=== PATIENT | female | born 1945 | race Caucasian/White ===

== ENCOUNTER 2016-05-08 20:04 | Inpatient (IN) | payer MEDICARE ==
[~2016-05-08] VITALS: Ht 157.5 cm; Wt 90.7 kg
[~2016-05-08 20:04] MED LIST: AMIO200T PO; AMPI500C11 PO; ASPI325T32 PO; CARV3.122 PO; CHOL200025 PO; DOXY100T2 PO; HYDR-4003 PO; HYG25 PO; INSU100V28 SUBQ; MELA3TAB11 PO; NITR0.4T SL; NPH,100V11 SUBQ; PRAV10TA2 PO; SPIR25TA3 PO; WARF3TAB7 PO; [UNRECOGNIZED DRUG - OTHER] PO
[2016-05-08 20:06] VITALS: BP 166/69; PULSE 64; RESP 16; O2SAT 97
--- NOTE | 2016-05-08 20:13 | ED.REPORT ---
HPI-Chest Pain 40 and Over Date of Service May 08, 2016 ED Provider: Naga Albright MD The patient is a 71 year old female with history of coronary artery disease s/p CABG and stenting, atrial fibrillation, diabetes mellitus, hypertension, hyperlipidemia, sick sinus syndrome s/p pacemaker, and stroke, who presents to the emergency department by EMS complaining of chest pain. The chest pain began this morning. She took nitroglycerin x3 throughout the day and when the pain returned again this evening she decided to call EMS. She describes the pain as a "pressure" and "heaviness." The pain is located to her substernal region. The episodes of pain seem to be brought on with exertion. Her pain is similar to when she had stents placed. EMS administered an additional dose of nitroglycerin en route. The pain is resolved now. She took 324 mg aspirin along with the rest of her regularly prescribed medication this morning. She denies fever, cough, runny nose. She reports that since her later last year she has been "cold and chilled." Nursing Notes Stated Complaint: CHEST PAIN Chief Complaint: Chest Pain Nursing Notes Reviewed: Yes Allergies: Coded Allergies: sotalol (Verified Allergy, Mild, Hives, 09/01/15) Sulfa (Sulfonamide Antibiotics) (Verified Allergy, Unknown, 09/01/15) furosemide (Verified Allergy, Unknown, 09/01/15) lactose (Verified Allergy, Unknown, 09/01/15) TAPE (Verified Adverse Reaction, Intermediate, 09/01/15) Scheduled ([BioDoph 7]) 1 CAPSULE PO BID Amiodarone (Amiodarone) 200 Mg Tablet 400 MG PO BID 2 pills twice per day for 5 more days starting 09/05/15, then 2 pills once per day for 7 days, then one pill per day. Ampicillin Trihydrate (Ampicillin Trihydrate) 500 Mg Capsule 500 MG PO Q6H Aspirin (Aspirin) 325 Mg Tablet 325 MG PO DAILY Carvedilol (Carvedilol) 3.125 Mg Tablet 3.125 MG PO BID Chlorthalidone (Chlorthalidone) 25 Mg Tablet 25 MG PO DAILY Cholecalciferol (Vitamin D3) (Vitamin D3) 2,000 Unit Tablet 2,000 UNIT PO DAILY Doxycycline Hyclate (Doxycycline Hyclate) 100 Mg Tablet 100 MG PO DAILY Insulin Regular, Human (HUMulin-R U100 Insulin Vial) 100 Unit/1 Ml Vial 1 UNIT SUBQ TIDAC Melatonin (Melatonin) 3 Mg Tablet.er 3 MG PO HS NPH, Human Insulin Isophane (HUMulin-N U100 Insulin Vial) 100 Unit/1 Ml Ml 25 UNIT SUBQ BIDAC Pravastatin (Pravastatin) 10 Mg Tablet 10 MG PO HS Spironolactone (Spironolactone) 25 Mg Tablet 25 MG PO DAILY Warfarin Sodium (Warfarin Sodium) 3 Mg Tablet 6 MG PO DAILY take every other day Scheduled PRN Hydrocodone-Acetaminophen 5-325 mg (Hydrocodone-Acetaminophen 5-325 mg) 1 Each Tablet 1 TABLET PO Q4H PRN PRN For Pain Nitroglycerin SL (Nitrostat) 0.4 Mg Tablet 0.4 MG SL Q5MIN PRN PRN For Chest Pain General Time Seen by MD: 20:05 Chief Complaint Chest pain Hx Obtained From: Patient, EMS Arrived By: Ambulance Sudden in Onset?: Yes Onset Occurred: 9 - 12 hours ago Symptom Duration: Intermittent Location: : Substernal Quality: Heaviness, Pressure Severity: Current: No pain currently Severity: Maximum: Severe Recent Healthcare: No recent hospitalization Similar Sx Previous: No Past Medical History Past Medical History Notes: Act English Tutor: Dr. Harris Full code Past Medical History Legally blind TIA Stage 3 kidney disease Paroxysmal Atrial fibrillation Sick sinus syndrome Reports: Coronary artery disease, Diabetes mellitus, Hyperlipidemia, Hypertension Past Surgical History CABG in 2012 Cardiac stents Reports: Appendectomy, Cholecystectomy, Hysterectomy Reports: Pacemaker insertion Family History diabetes, breast cancer, colon cancer, CVA Smoking History Former Smoker Social History Alcohol Use: Denies alcohol use Drug Use: Denies drug use Other Social History: Good social support, , Local resident Ambulatory Status Independent Review of Systems Constitutional: Reports: Chills (over the last several months), Denies: Fever Respiratory: Reports: Shortness of breath, Denies: Non-productive cough Cardiovascular: Reports: Chest pain Complete sys rev & neg: except as marked. Ears / Nose / Throat: Denies: Nasal congestion Allergy / Immune: Denies: Rhinorrhea Physical Exam Initial Vital Signs Vital Signs (First) Date Time Temp Pulse Resp B/P Pulse Ox O2 Delivery O2 Flow Rate FiO2 05/08/16 20:06 36.9 64 16 166/69 97 Room Air Initial VS: Reviewed Head / Eyes: Atraumatic, Normocephalic, PERRL ENT: Mucous membranes moist, Conjunctiva normal, No scleral icterus Neck: Supple, Non-tender, Full range of motion Lymphatic: No lymphadenopathy Extremities: Vascular intact, Neuro intact Skin: Warm, Dry, No cyanosis Psychiatric: Mood/affect normal, Behavior normal, Normal thought content General/Constitutional: Awake, Alert, No acute distress, Cooperative Respiratory / Chest: Atraumatic, Breath sounds NL, Breath sounds = bilat, No respiratory distress, No rales, No rhonchi, No wheezing, No stridor, No chest tenderness Well healed scar to her left chest. Cardiovascular: Heart rate NL, Regular rhythm, Heart sounds NL, No murmurs, Peripheral circulation NL, Pulses = bilaterally, No gross BP differential Abdomen: Atraumatic, Soft, Non-tender, McBurney's non-tender, No guarding, No rebound, BS normoactive, No distention, No hernia, No palpable mass Lower Extremity / Pelvis / MS: Neurologic intact, Vascular intact Trace pitting edema of her ankles bilaterally but otherwise no calf swelling or tenderness. Neurologic: Oriented X3, Speech NL, No motor deficits, No sensory deficits No lateralizing neurologic deficits. Interpretation & Diagnostics Lab Results Interpretation Result Diagram: 05/08/16201205/08/16 2013 Test 05/08/16 20:13 White Blood Count 8.4th/mm3 (3.8-10.1) Red Blood Count 4.09mil/mm3 (3.90-5.20) Hemoglobin 12.0g/dL (12.0-15.6) Hematocrit 36.3% (35.0-46.0) Mean Corpuscular Volume 88.8fL (81-100) Mean Corpuscular Hemoglobin 29.3pg (27.0-35.0) Mean Corpuscular Hemoglobin Concent 33.1% (32.0-37.0) Red Cell Distribution Width 13.2% (12.3-15.4) Platelet Count 254bil/L (150-400) Neutrophils (%) (Auto) 55.7% (40-74) Lymphocytes (%) (Auto) 31.3% (14-46) Monocytes (%) (Auto) 8.3% (4-12) Eosinophils (%) (Auto) 3.8% (0-5) Basophils (%) (Auto) 0.7% (0-3) Sodium Level 139mEq/L (134-144) Potassium Level 3.8mEq/L (3.5-5.2) Chloride Level 101mEq/L (97-108) Carbon Dioxide Level 24mmol/L (18-29) Blood Urea Nitrogen 37mg/dL (8-27) Creatinine 2.21mg/dL (0.57-1.00) Estimat Glomerular Filtration Rate 31mL/min (>59) Glucose Level 250mg/dL (60-99) Calcium Level 9.8mg/dL (8.5-10.1) Magnesium Level 2.2mg/dL (1.6-2.6) Total Bilirubin 0.2mg/dL (0.0-1.2) Aspartate Amino Transf (AST/SGOT) 20U/L (0-50) Alanine Aminotransferase (ALT/SGPT) 19U/L (0-32) Alkaline Phosphatase 54U/L (25-165) Total Protein 6.5g/dL (6.4-8.4) Albumin 4.0g/dL (3.4-5.0) ECG Interpretation ECG Interpretation: Atrial paced rhythm at 60 bpm Compared to EKG taken on 11/15/2015 the patient remains in an atrially paced rhythm and there are no significant changes. Time: 20:00 Interpreted by: ED physician X-Ray Chest Interpretation Chest Xray Interpretation: IMPRESSION: No acute cardiopulmonary findings. Dictated by: Elli Main M.D. on 05/08/2016 at 20:44 Interpretation / Wet Read by: Interpret - Radiologist Re-Eval/Medical Decision Med Decision/Clinical Course The patient is a 71 year old female with history of coronary artery disease s/p CABG and stenting, atrial fibrillation, diabetes mellitus, hypertension, hyperlipidemia, sick sinus syndrome s/p pacemaker, and stroke, who presents to the emergency department by EMS complaining of chest pain. ASA and NTG prior to arrival with improvement in her chest pain. Chest pain is exertional in nature and similar to previous chest pain she experienced prior to requiring coronary intervention. EKG: atrially paced rhythm as described above CXR: Obtained, reviewed and interpreted by myself shows no evidence of acute infiltrates, effusions or pneumothorax. Cardiac and mediastinal silhouette normal. No bony or soft tissue abnormalities. LABS: CBC unremarkable, CMP: BUN 37 at baseline, creatinine of 2.21 which is slightly elevated from baseline of 1.7-1.8, glucose 250, no significant electrolyte abnormality, troponin 0.013 increased from prior negative troponin on 11/09/2015. Upon arrival here in the emergency department the patient had mild chest pain and was quite hypertensive with a blood pressure in the 200s over the 100s. This markedly elevated blood pressure in the setting of acute kidney injury and positive troponin is concerning for hypertensive emergency. Patient remained with markedly elevated blood pressure on repeat testing and therefore I opted to initiate nicardipine infusion with good control patient's blood pressure. With this treatment she had resolution of her chest pain. While the patient's troponin is positive it is only mildly so in the setting of her acute kidney injury is difficult to interpret. She will require serial troponin testing however this moment I have opted not to initiate heparinization. She is neurologically intact without any headache or blurry vision and do not feel that neuro imaging is indicated. Patient was discussed with admitting physician and transferred to the ICU in stable condition on nicardipine drip. Source of Hx: Old records, EMS Time of Eval: 21:36 Re-Evaluation/Progress Note: Discussed results, diagnosis, and plan for admission. She is agreeable with plan. All questions were addressed. Consultation : Referral / Consult Name: Lavonne Andujar DO Consulted With: Hospitalist Requested Call at: 21:41 Call Returned at: 21:48 Ssas Developer: Will see patient, Agrees with eval, Agrees with plan, Accepts admit Counseled Regarding: Diagnosis, Lab results, Need for admission Discharge & Departure Primary Impression: Chest pain Chest pain type: unspecified Qualified Code: R07.9 - Chest pain, unspecified Additional Impressions: Hypertensive emergency History of coronary artery disease History of heart artery stent Acute kidney injury Elevated troponin I level Disposition: ADMITTED TO HOSPITAL Discharge Condition All VS Reviewed: Yes Condition: Stable Referrals: Roseann Newman PA-C (PCP) Leonidas Harris MD Crit Care Except Billable Proc Time Spent: 105-134 minutes Services Performed: Patient management by me, Time spent at bedside, Reviewing test results, Reviewing imaging, Discussing patient care, Documentation in record Scribe Attestation Portions of this note were transcribed by Bonnie Berger. Dr. Natalee Jorge personally performed the history, physical exam and medical decision-making; I reviewed and confirmed the accuracy of the information in the transcribed note. Signed by: Stefanie Flores, 05/08/2016 at 2150. copies to: Leonidas Harris MD; Roseann Newman PA-C, Beck O MD May 08, 2016 20:13 Bonnie Berger May 08, 2016 20:17
[2016-05-08 20:16] LABS: BASOPHILS % (AUTO) 0.7 % (0-3); EOSINOPHILS % (AUTO) 3.8 % (0-5); MONOCYTES % (AUTO) 8.3 % (4-12); Mean Corpuscular Hemoglobin 29.3 pg (27.0-35.0); Mean Corpuscular Volume 88.8 fL (81-100); NEUTROPHILS % (AUTO) 55.7 % (40-74); Platelet Count 254 bil/L (150-400)
[2016-05-08 20:42] LABS: TROPONIN T 0.013 ug/L (0.0-0.011)
--- NOTE | 2016-05-08 20:46 | DRSVH ---
PROCEDURE: X-RAY CHEST ONE VIEW, PORTABLE ([id number]) INDICATIONS: chest pain TECHNIQUE: One view of the chest was acquired. COMPARISON: [facility], CR, XR CHEST 1VW (PORTABLE), 11/15/2015, 12:51. FINDINGS: Surgical changes and devices: Dual-lead cardiac pacer is unchanged. Lungs and pleura: No pleural effusions or pneumothorax. Lungs are clear. Mediastinum: Mediastinal contours appear normal. Heart size is normal. Bones and chest wall: No suspicious bony lesions. Overlying soft tissues appear unremarkable. IMPRESSION: No acute cardiopulmonary findings. Dictated by: Elli Main M.D. on 05/08/2016 at 20:44 Approved by: Elli Main M.D. on 05/08/2016 at 20:44
[2016-05-08 20:53] LABS: Magnesium 2.2 mg/dL (1.6-2.6)
[2016-05-08] MEDS ORDERED: Alum-Mag Hydrox-Simeth 30 mL Suspension PO PRN (21:45)
[2016-05-08] MEDS ORDERED: Ondansetron 2 mg/mL 2 mL Inj IVPUSH PRN (21:45)
[2016-05-08] MEDS: NiCARdipine Inj 25 MG in Dextrose 5% 240 ML IV SCH (22:32)
[2016-05-08 23:28] VITALS: BP 164/59; PULSE 60; RESP 16; O2SAT 98
[2016-05-08 23:38] VITALS: BP 182/57; PULSE 60; RESP 18; O2SAT 98
[2016-05-08] MEDS ORDERED: Senna-Docusate 8.6-50 mg Tablet PO PRN (23:50)
[2016-05-08] MEDS ORDERED: Atropine 1 mg/10 mL (Code) Syringe IVPUSH PRN (23:50)
[2016-05-08] MEDS ORDERED: Polyethylene Glycol (PEG) 17 Gm Powder PO PRN (23:50)
[2016-05-09] VITALS (12 sets, daily range): BP systolic 140–207; BP diastolic 35–93; PULSE 60–61; RESP 14–20; O2SAT 93–97
[2016-05-09] MEDS ORDERED: LOSA50TA37 PO (00:04)
[2016-05-09] MEDS ORDERED: NPH,100V11 SUBQ (00:04)
[2016-05-09] MEDS ORDERED: BUME1TAB4 PO ×2 (00:04→15:43)
[2016-05-09] MEDS ORDERED: FLUO10CA20 PO (00:04)
[2016-05-09] MEDS ORDERED: ASCO100089 PO (00:04)
[2016-05-09] MEDS ORDERED: FAMO20TA4 PO (00:04)
[2016-05-09] MEDS ORDERED: CARV25TA2 PO ×2 (00:04→15:43)
[2016-05-09] MEDS ORDERED: AMIO200T PO ×2 (00:04→15:43)
[2016-05-09] MEDS ORDERED: HYDR-3940 PO ×2 (00:04→15:43)
[2016-05-09] MEDS ORDERED: ISOS20TA7 PO ×2 (00:04→15:43)
[2016-05-09] MEDS ORDERED: HYG25 PO (00:13)
[2016-05-09] MEDS ORDERED: LOSA25TA21 PO (00:13)
--- NOTE | 2016-05-09 00:30 | NUR ---
Admit to CCU Pt admitted to CCU room 2019 from ER in [facility]. Pt A&O x 3 and able to ambulate from [facility] to scale to bed without problem. Tele shows A Paced rhythm in 60s. High BP 170s/50s with goal systolic rate of 160s-180s. On Nicardipine gtt. Denies CP, SOB, n/v/d or abdominal pain. Did c/o 5/10 [place], but reports it "feels like a normal BURLESON" vs when she had TIA/stroke. Pt oriented to room, floor, and call light. Care ongoing
--- NOTE | 2016-05-09 00:43 | PCM.HPMED ---
Subjective Date of Service May 09, 2016 Primary Provider: Admitting Physician: Lavonne Andujar DO Primary Care Physician: Roseann Newman PA-C Attending Physician: Lavonne Andujar DO Admit Status: From the Emergency Department, Critical Care, [facility] Telemetry Chief Complaint: Chest pain History of Present Illness: Ms. Trixie Graham is a pleasant 71 year old woman with a history of CAD s/p stenting x2, paroxysmal atrial fibrillation, sick sinus syndrome s/p dual- chamber pacer placement, insulin using diabetes mellitus, multiple ischemic CVA , two hemorrhagic stroke, and hyperlipidemia, who presented to the ED via EMS for substernal chest pain onset this morning. Patient reports to have intermittent angina that improved after the pacemaker placement. She has had occasional angina episodes that resolve spontaneously. Today was different as the chest pain persisted until she got to the ED. Patient has chest pain both at rest and with activities, but seems to worsen with exertion. She states, "even putting on clothes feels like running a marathon." She took nitroglycerin x3 throughout the day with some relief. When the pain returned again this evening, she decided to call EMS. She describes the pain as a "pressure" and "heaviness." The pain is located to her substernal region with no radiation. The episodes of pain seem to be brought on with exertion. Her pain is similar to when she had stents placed. EMS administered an additional dose of nitroglycerin en route. The pain is resolved now. Patient states that she had 2 stents, one was placed 7 years ago, and the other was placed 2 years ago. Never has CABG. Associated symptoms include exertional dyspnea. Patient denies fever , diaphoresis, cough, runny nose, headache, or orthopnea. Patient had 2 hemorrhagic stroke, with the most recent one in 10/2015 and her warfarin has been held since. She does not have any neurological deficit and can ambulate independently as baseline. She reports that the Afib has been well- controlled with the pacemaker. Rate controlled with Carvedilol and Amiodarone. In the ED, T36.6, P158, R20, BP242/84, 94% room air; LABS: CBC unremarkable, CMP : BUN 37 at baseline, creatinine of 2.21 which is slightly elevated from baseline of 1.7-1.8, glucose 250, no significant electrolyte abnormality, troponin 0.013 increased from prior negative troponin on 11/09/2015. EKG revealed Atrial paced rhythm at 60bpm with no significant changes compared to the last EKG on 11/15/2015. Nicardipime drip initiated. Patient is admitted to the CCU for angina and hypertensive emergency. Review of Systems: A comprehensive review of systems was conducted with the patient and found to be negative except as above in the History of Present Illness. Allergies Coded Allergies: sotalol (Verified Allergy, Mild, Hives, 09/01/15) Sulfa (Sulfonamide Antibiotics) (Verified Allergy, Unknown, 09/01/15) furosemide (Verified Allergy, Unknown, 09/01/15) lactose (Verified Allergy, Unknown, 09/01/15) TAPE (Verified Adverse Reaction, Intermediate, 09/01/15) Home Medications Scheduled Amiodarone (Amiodarone) 200 Mg Tablet PO daily Ascorbic acid 1000mg PO daily Aspirin (Aspirin) 325 Mg Tablet 325 MG PO DAILY Bumetanide 1mg PO daily Carvedilol (Carvedilol) 25 MG PO BID Chlorthalidone (Chlorthalidone) 25 Mg Tablet 12.5 MG PO DAILY Cholecalciferol (Vitamin D3) (Vitamin D3) 2,000 Unit Tablet 2,000 UNIT PO DAILY Famotidine 20mg BID Fluoxetine 10mg daily Hydralazine 50mg PO TID Isosorbide 40mg PO BID Losartan 50mg PO BID Melatonin (Melatonin) 3 Mg Tablet.er 3 MG PO HS NPH, Human Insulin Isophane (HUMulin-N U100 Insulin Vial) 100 Unit/1 Ml Ml 25 UNIT SUBQ BIDAC Pravastatin (Pravastatin) 10 Mg Tablet 10 MG PO HS Spironolactone (Spironolactone) 25 Mg Tablet 25 MG PO DAILY Warfarin Sodium (Warfarin Sodium) 3 Mg Tablet 6 MG PO DAILY take every other day Scheduled PRN Hydrocodone-Acetaminophen 5-325 mg (Hydrocodone-Acetaminophen 5-325 mg) 1 Each Tablet 1 TABLET PO Q4H PRN PRN For Pain Nitroglycerin SL (Nitrostat) 0.4 Mg Tablet 0.4 MG SL Q5MIN PRN PRN For Chest Pain PMH Per next gen: Hypertension Chronic headaches Hyperparathyroidism Type 2 diabetes mellitus Lumbosacral radiculopathy Depression Tachy-eliza syndrome SSS (sick sinus syndrome) Hyperlipidemia Chronic atrial fibrillation Diabetes mellitus Radiculopathy of lumbar region Atrial Fibrillation CAD Late effects of cerebrovascular disease Abdominal pain Chronic abdominal pain Type II diabetes mellitus uncontrolled Benign hypertension Paroxysmal atrial fibrillation Chronic kidney disease, stage III (moderate) 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 with type 2 diabetes mellitus YANCI (obstructive sleep apnea) Radicular pain Stroke both ischemic and hemorrhagic Surgical History CAD s/p LAD stenting 2012 Surgical History Cholecystectomy CAD s/p stent LAD 2012 Temporal artery Bx 1998 Appendectomy Hysterectomy Family History Significant family history of diabetes (4th generation with DM), breast cancer, colon cancer, CVA Social History Hx Alcohol Use: No Hx Substance Use: No Hx Tobacco Use: No Smoking Status: Former Smoker (3-month history of tobacco use in college) Living Arrangement: Alone Additional Information Patient was in the hospital a year ago when she found out that her at home. The home health nurse found him on the couch. Now she lives by herself with 3 kids living around the area. She is independent at baseline. She uses the walking cane occasionally when she goes out. PCP Roseann Newman Cardiology Dr. Harris Nephrology Dr. Scott Endocrinology Dr. Moralez Exam Vital Signs Vital Sign - Last Date Time Temp Pulse Resp B/P Pulse Ox O2 Delivery O2 Flow Rate FiO2 05/08/16 23:38 37.0 60 18 182/57 98 Room Air Intake and Output 05/08/16 05/08/16 05/09/16 Cumulative From/Thru 15:00 23:00 07:00 05/08/16 20:06 - 05/08/16 23:30 Output Total 250 ml 250 ml Balance -250 ml -250 ml Output Urine Total 250 ml 250 ml # Voids 1 1 Exam General: Overweight female resting in bed; No acute distress, pleasant, cooperative; Alert and oriented to self, date, location HENT: No JVD noted; atraumatic, normocephalic; EOMI, PERRL, mucous membranes moist Chest: Upper left chest with well healed scar; no active bleeding or exudate, mildly tender to palpation, no surrounding erythema Cardiac: Regular rate and rhythm with loud S1, no murmurs appreciated Respiratory: Adequate air flow all goldstein, no wheeze or coarse sounds appreciated; no conversational dyspnea Abdomen: Soft, nontender with exception of mild suprapubic tenderness; no organomegaly appreciated Extremities: Trace pitting edema of bilateral lower extremities. No calf swelling or tenderness. 5/5 dorsiflexion bilateral; radial pulses equal. Neuro: CNII-CNXII grossly intact; speech normal. No motor/sensory deficits. Lymphatic: no cervical or supraclavicular lymphadenopathy on palpation / visualization Psych: Appears depressed. Good insight and judgment; appropriate responses to questioning Lab and Diagnostics Result Diagram: 05/08/16201205/08/162012 X-Rays, CTs and MRIs PROCEDURE: X-RAY CHEST ONE VIEW, PORTABLE IMPRESSION: No acute cardiopulmonary findings. Dictated by: Elli Main M.D. on 05/08/2016 at 20:44 Approved by: Elli Main M.D. on 05/08/2016 at 20:44 12-lead ECG Atrial paced rhythm at 60bpm. No significant changes compared to EKG taken on . Assessment & Plan Ms. Trixie Graham is a pleasant 71 year old woman with a history of paroxysmal atrial fibrillation, sick sinus syndrome s/p dual-chamber pacer placement, uncontrolled insulin using diabetes mellitus, multiple ischemic CVA, two hemorrhagic stroke, and hyperlipidemia, that presented to the ED with symptoms of chest pain. Patient admitted for evaluation and treatment of angina and hypertensive emergency. 1. Angina, acute, present on admission, active. - Likely secondary to AF with RVR - ED EKG revealed A-paced rhythm with HR at 60. - Last echo in [facility] 08/2015 showed Left ventricular wall thickness is mildly increased. The ejection fraction is estimated to be 60-65%. Consider Limited Echo in am - While the patient's troponin is positive it is only mildly so (0.013). In the setting of her acute kidney injury, it is difficult to interpret. She will require serial troponin testing - EKG prn chest pain. - Continue home dose of ASA 325mg and statin, lipid panel and hgb a1c pending - Nitro, O2 supplement, and Morphine PRN. - Will not start Heparin drip given her history of hemorrhagic CVA in 10/2015. - Consider consult Cardiology in AM - Telemetry monitoring 2. Hypertensive Emergency, acute, present on admission, active. - Markedly elevated BP in the setting of CONNIE and positive troponin. - Highest BP was 242/84. Improved on Nicardipine ggt. - Goal SBP is 180/60. - Will taper and d/c Nicardipine ggt once SBP is stable around 160 - Will continue all antihypertensive home meds when transitioning from Nicardipine drip. Patient is on multiple cardiac medications. - Continue to monitor vital signs 3. Acute on chronic kidney disease, stage III, present on admission, active. - Cr at admission 2.21 with eGFR 31; baseline 1.7-1.8 according to previous values - Employee Health Rn: [facility]. Scott [facility] - Avoidance of nephrotoxic medications. - Patient appears euvolemic on exam. Encourage oral hydration. 4. Diabetes mellitus, insulin using, likely uncontrolled. - Most recent A1c 08/2015: 8.4 - BG of 250 on admission - Home insulin: NPH 30U bidac with no meal time insulin. - Will reduce the NPH to 15 units BIDAC with low correctional scale in place - Repeat A1c ordered 5. History of Atrial fibrillation, chronic, stable. - s/p pacemaker. EKG showed A-paced rhythm at 60bpm. - Rate controlled with Amiodarone 200mg daily and Carvediol 25mg BID. Continue when nicardipine dc'd likely in am - Recent PFT in 10/2015 showed restrictive lung disease. Might consider amiodarone toxicity. - High CHADS score, but patient is at high risk for bleeding. Warfarin was d/c in 10/2015 after the second hemorrhagic stroke. - Tele monitoring 6. Restrictive lung disease, chronic, presume stable. - Recent PFT in 10/2015 showed evidence of a restrictive pattern which can be due to amiodarone toxicity. - Follow up as outpatient 7. Hyperlipidemia, chronic. Managed - Lipid profile for am - Continue statin 8. HTN, essential, chronic, uncontrolled - Management as #2. On Nicardipine ggt. - Will need to resume home antihypertensive medications once patient is off the drip. 9. Buddhism influence on treatment - Patient is Roman Catholic - NO BLOOD TRANSFUSIONS 10. Sick sinus syndrome, s/p dual chamber pacer placement. Stable - Pacer placed 08/30/15 at [facility] - Tele in place - Continue to monitor incision; pacer firing, if any 11. Depression, chronic, presume stable. - Continue home dose of Fluoxetine. Bowel regimen as needed Antiemetics as needed APAP as needed for fever/pain CODE STATUS: DNR/DNI per the patient Pain Evaluation: Adequate Pain Control GI Prophylaxis: H2 wendy VTE Prophylaxis: Sub-Q Heparin (Unfractionated) VTE Mechanical Devices: Intermittant Pneumatic CD Resuscitation Status: DNR/DNI:Do Not Resuscitate/Intubate Attending Statement The patient was seen and examined together with house staff on 05/08/2016 and I agree with the history, exam and plan as outlined in the note above. copies to: Shane Young MD; Leonidas Harris MD; Roseann Newman PA-C, Ngochanh H DO May 09, 2016 00:43 Lavonne Andujar DO May 09, 2016 03:01 no longer than 20 minutes Pain Evaluation: Adequate Pain Control GI Prophylaxis: H2 wendy VTE Prophylaxis: Sub-Q Heparin (Unfractionated) VTE Mechanical Devices: Intermittant Pneumatic CD copies to: Shane Young MD; Leonidas Harris MD; Roseann Newman PA-C, Ngochanh H DO May 09, 2016 00:43
[2016-05-09] MEDS: Heparin 5,000 Unit/mL Inj SUBQ SCH ×3 (01:10→17:32)
[2016-05-09] MEDS: Sodium Chloride LOK Flush 10 mL Syringe IVFLUSH SCH ×3 (01:10→15:56)
[2016-05-09] MEDS: Insulin Human REGular 300 Unit/3 mL Inj SUBQ SCH ×4 (01:59→20:52)
[2016-05-09] MEDS ORDERED: HYDROcodone-APAP 5-325 mg Tablet PO PRN (02:30)
[2016-05-09] MEDS: NiCARdipine Inj 25 MG in Dextrose 5% 240 ML IV SCH ×4 (02:34→15:59)
[2016-05-09 03:49] LABS: BASOPHILS % (AUTO) 0.6 % (0-3); EOSINOPHILS % (AUTO) 4.8 % (0-5); MONOCYTES % (AUTO) 9.8 % (4-12); Mean Corpuscular Hemoglobin 29.2 pg (27.0-35.0); Mean Corpuscular Volume 89.5 fL (81-100); NEUTROPHILS % (AUTO) 45.6 % (40-74); Platelet Count 236 bil/L (150-400)
[2016-05-09 04:15] LABS: TROPONIN T 0.016 ug/L (0.0-0.011)
[2016-05-09 04:27] LABS: Magnesium 2.1 mg/dL (1.6-2.6)
--- NOTE | 2016-05-09 06:23 | NUR ---
BP Per MD, SBP goal is 160-180. Pt started falling under this despite lowering Nicardipine gtt. ~0200, Nicardipine gtt shit off completely. Pt tolerated well. At start of care, pt had BURLESON and palpitations which have resolved with IV meds and sleep. Will continue to monitor. Care ongoing
[2016-05-09] MEDS: Insulin Human NPH 100 Unit/mL 3 mL Inj SUBQ SCH ×3 (09:11→17:53)
--- NOTE | 2016-05-09 11:33 | CONS ---
[address] [address] CONSULTATION REPORT PATIENT: BRITTNEY MCCONNELL : 1945 MR#: [id number] ADMIT: 05/08/2016 JOB ID: [id number] DATE OF SERVICE: 05/09/2016 CARDIOLOGY CONSULTATION: I was asked by the hospital team to consult on this patient given chest pain. HISTORY OF PRESENT ILLNESS: The patient is a 71-year-old woman with history of hypertension and coronary disease status post stenting to the left anterior descending artery back in 2012. One 2.75 x 50 mm stent was placed in the LAD. This did require post dilation in the more proximal segment given it was felt not optimally dilated. Since that time she has had intermittent episodes of chest pain but apparently these did improve after she had a pacemaker placed in August of last year. My suspicion is that these episodes may have been related to atrial fibrillation. She was on anticoagulation but has a history of hemorrhagic stroke and thus was taken off anticoagulation. She was in rehab last fall after her stroke and she said she was quite hypertensive and unfortunately blood pressure was not well controlled. At this time she does not have a primary care provider but recently saw a optometric coordinator, who added a medication to her blood pressure medications and gave her some improved control. She tells me since she had the pacer placed she has had maybe 2-3 episodes of transient chest discomfort all of which were relieved with nitroglycerin. Unfortunately yesterday she got similar symptoms and these did not improve with nitroglycerin. She tells me that the symptoms did worsen with exertion and at this point are completely resolved. She was fairly hypertensive in the ER and she has been started on nicardipine by the hospital team. She is having no more chest pain at all. She denies increased shortness of breath, orthopnea, PND, lower extremity edema, prolonged palpitations, presyncope, or syncope. PAST MEDICAL HISTORY/PROBLEM LIST: 1. Hypertension. 2. History of chronic headaches. 3. History of diabetes. 4. History of tachybrady syndrome and sick sinus syndrome with pacer placement last summer. 5. History of atrial fibrillation, now not on anticoagulation given history of hemorrhagic bleeding and brain bleed. 6. Coronary disease status post a stent to the left anterior descending artery in 2012. HOME MEDICATIONS: Include amiodarone 200 daily, vitamin C, aspirin 325 daily, bumetanide 1 mg daily, carvedilol 25 b.i.d., chlorthalidone 25 mg tablets 12.5 daily, famotidine, fluoxetine, hydralazine 50 mg t.i.d., Imdur 40 mg b.i.d., Losartan 50 mg b.i.d., NPH insulin, pravastatin, and spironolactone. She tells me she is not on warfarin at this time. ALLERGIES: 1. SOTALOL, UNKNOWN PROBLEM. 2. SULFA, UNKNOWN PROBLEM. 3. FUROSEMIDE, UNKNOWN PROBLEM. 4. LACTOSE. 5. TAPE. SOCIAL HISTORY: Former smoker but not currently smoking. No alcohol use. FAMILY HISTORY: Diabetes mellitus. REVIEW OF SYSTEMS: Overall health: No fevers, chills, night sweats, or weight loss. GI: No problems with ulcers or blood in her stool. : No dysuria, no hematuria, but does have renal insufficiency. Seeing a renal specialist. Neuro: History of chronic headaches, history of intracranial bleed now off warfarin. She was hospitalized for that in October 2015. Musculoskeletal: No joint pain or swelling. Cardiac: As per HPI. Pulmonary: No lung problems. No increased shortness of breath. Endocrine: Diabetes mellitus. No heat or cold intolerance. ENT: No sore throat or difficulty swallowing. Psych: No acute issues. Ophtho: No acute vision changes. All other review of systems on a 12-point review of systems are negative. PHYSICAL EXAMINATION: Blood pressure is 164/58. She is afebrile. Sats are 95% on room air. General: In no acute distress. Speaking in full sentences without apparent shortness of breath. Head: Normocephalic, atraumatic. Neck: No obvious JV distention. No carotid bruits appreciated. Heart: Regular rate and rhythm. I do not appreciate murmurs, gallops, or rubs. Lungs: Sound clear. Back: No CVA tenderness to palpation. Abdomen: Soft, nontender. Extremities: Warm, with good distal pulses. Skin: Without breakdown appreciated. Neuro: Alert and oriented x3. Gait: Not tested. Psych: Appropriate mood and affect. ENT : mucous membranes moist. Optho: visit grossly intact LABORATORY AND DIAGNOSTIC STUDIES: EKG shows a paced atrial beat with conducted ventricular beats. IMAGING: Shows a chest x-ray with no acute cardiopulmonary findings. LABORATORY: White count 7.7, H and H 10.9 and 33.4, platelets of 236,000. Chemistry shows sodium 141, potassium 3.6, chloride and bicarb 104 and 23, respectively. BUN and creatinine 33 and 2.17, glucose 238. Troponins all in the indeterminate range. CURRENT MEDICATIONS: Include fluoxetine, aspirin, subcu heparin, insulin, nicardipine, pravastatin. I do not see any of her outpatient medications on this list. IMPRESSION: The patient has had intermittent episodes of chest pain. These have been less frequent since she had her pacemaker placed. She has not been noticing any palpitations consistent with atrial fibrillation. She had chest discomfort that did not resolve and required more three nitros, therefore she came. She has nondiagnostic troponin elevation and no acute EKG change, although she is atrial paced. She has no chest pain at this time. PLAN: 1. I think we need to get her back on her home medications and manage her blood pressure. 2. Although she has had an echocardiogram in the past, it would be helpful to get another echocardiogram to make sure we do not see any focal wall motion abnormalities that would push us to do cardiac catheterization. 3. Her chest does sound concerning. It could have been related to hypertension and could be related to new problems with coronary disease. However, her renal insufficiency makes it difficult for us to do cardiac catheterization and other concerns would be adding any other medications such as Plavix given her history of bleeding. Let us get an echocardiogram, get her on her home blood pressure medications, and consider stress testing in her to make sure there no large areas of ischemia and no large areas of risk. TIME: I spent 52 minutes reviewing the patient's chart, speaking with the patient, and reviewing her cath films and other findings. RJ
[2016-05-09] MEDS ORDERED: Insulin Human NPH 100 Unit/mL 3 mL Inj SUBQ ONE (12:45)
--- NOTE | 2016-05-09 12:48 | DRSVH ---
[facility] [address] [place] [address] Echocardiogram Report Name: BRITTNEY MCCONNELL CStudy Date: 05/09/2016 Height: 62 in Hospital Exam Location: [facility] Weight: 20 3 lb Gender: Female BSA: 1.9 m2 : 1945 Age: 71 yrs BP: 164/58 mmHg Reason For Study: Chest pain Ordering Physician: MD Rosemary Bates Performed By: Génesis Hernandez Referring Physician: WILLAM Newman Interpretation Summary The ejection fraction is estimated to be 60-65%. There is a pacemaker lead in the right ventricle. The left atrium is moderately dilated. There is mild tricuspid regurgitation. The right ventricular systolic pressure is estimated at 34 mmHg assuming a right atrial pressure of 3 mm Hg. Compared to the prior echo exam, there has been an increase in PA pressure Procedure: A two-dimensional transthoracic echocardiogram with color flow and Doppler was performed. The study quality was technically good. Comparison is made with the echocardiogram of 09-02-15. The patient has a paced rhythm. Left Ventricle: The left ventricle is normal in size, wall thickness, and systolic function without any focal wall motion abnormalities. The ejection fraction is estimated to be 60-65%. Assessment of diastolic parameters indicates normal left ventricular diastolic function and normal filling pressures. Right Ventricle: The right ventricle is normal in size, thickness and function. There is a pacemaker lead in the right ventricle. Atria: The left atrium is moderately dilated. Right atrial size is normal. There is a catheter/pacemaker lead seen in the right atrium. The interatrial septum is intact with no evidence for an atrial septal defect. Mitral Valve: The mitral valve leaflets appear mildly thickened, but open well. There is trace mitral regurgitation. Aortic Valve: The aortic valve is trileaflet. The aortic valve opens well. No aortic regurgitation is present. Tricuspid Valve: The right ventricular systolic pressure is estimated at 34 mmHg assuming a right atrial pressure of 3 mm Hg. There is mild tricuspid regurgitation. Compared to the prior echo exam, there has been an increase in the severity of pulmonary hypertension. Pulmonic Valve: The pulmonic valve is normal in structure and function. There is trace pulmonic regurgitation. Great Vessels: The aortic root is normal size. The dimensions of the ascending aorta are normal. The IVC is of normal diameter and collapses greater than 50% with a sniff. This suggests a low right atrial pressure of 3 mm Hg. Pericardium/ Pleura There is no pericardial effusion. There is no pleural effusion. MMode/2D Measurements & Calculations LVIDd: 5.4 cm LA dimension: 4.7 cm RA long axis Ao root diam LVIDs: 3.2 cm FS: 40.9 % LA A2 area: 22.0 cm RA area Aortic Jxn: 2.3 cm IVSd: 1.1 cm LA A4 area: 25.2 cm asc Aorta Diam LVPWd: 0.93 cm LA length (vol) : 12.8 cm RA vol Ao Arch Diam (Prox LA vol: 87.4 ml : 30.9 ml Trans): 3.2 cm LA vol index RA : 16.1 mm/ RVDd major IVC diam: 1.9 cm : 6.5 cm LV priest. diameter/BSA LV sys. diameter/BSA RVD1 (basal) RVD2 (mid): 2.5 cm (cm/m^2): 2.8 (cm/m^2): 1.7 Doppler Measurements & Calculations Ao V2 max MV E max marcelino MV E/A: 1.1 TR max marcelino : 198.7 cm/sec : 107.3 cm/sec Med Peak E' Marcelino : 279.7 cm/sec Ao max PG MV A max marcelino TR max PG : 15.8 mmHg : 98.8 cm/sec E/E' med: 14.6 : 31.3 mmHg Ao mean PG MV P1/2t: 74.6 msec Lat Peak E' Marcelino PA V2 max : 142.3 cm/sec LVOT Max Marcelino E/E' lat: 12.1 PA mean PG : 109.9 cm/sec E/e' average: 13.4 sev ratio MV A dur: 0.15 sec PA Accel Time : 0.08 sec MV dec time MV P1/2t max marcelino Ao V2 mean LV V1 max PG : 0.26 sec : 137.4 cm/sec MVA(P1/2t): 3.0 cm2 Ao V2 VTI: 49.0 cm LV V1 VTI : 27.9 cm PA V2 mean : 80.3 cm/sec Electronically signed by: Stefano Macdonald on Reading Physician:05/09/2016 12:46 PM
--- NOTE | 2016-05-09 14:10 | PCM.PNMED ---
Subjective Date of Service May 09, 2016 Subjective She feels back to normal. She denies any dyspnea, chest pain or headache. Her blood pressure is normalized. She did have pressure in the chest throughout the day yesterday somewhat reminiscent of her pre-cath and stent pressure in 2012. Her medications have not been ordered as she is unsure of the exact doses of her carvedilol and losartan. We need to confirm her medication doses with the help of staff today. Exam Vital Signs Vital Sign - Last Date Time Temp Pulse Resp B/P Pulse Ox O2 Delivery O2 Flow Rate FiO2 05/09/16 12:00 37.0 60 16 166/60 96 Room Air Intake and Output 05/08/16 05/08/16 05/09/16 Cumulative From/Thru 15:00 23:00 07:00 05/08/16 20:06 - 05/08/16 23:30 Output Total 250 ml 250 ml Balance -250 ml -250 ml Output Urine Total 250 ml 250 ml # Voids 1 1 Exam Alert oriented 3, no distress. Fluent speech. Anicteric sclera Lungs are clear with normal rate and effort. Heart is regular without murmur gallop or rub Abdomen soft nontender. Extremities are free of edema with good pedal pulses. IVs and Medications Medications Reviewed: Medications were reviewed in detail Lab and Diagnostics Result Diagram: 05/09/16 0300 05/09/16 0300 X-Rays, CTs and MRIs PROCEDURE: X-RAY CHEST ONE VIEW, PORTABLE IMPRESSION: No acute cardiopulmonary findings. Dictated by: Elli Main M.D. on 05/08/2016 at 20:44 Approved by: Elli Main M.D. on 05/08/2016 at 20:44 12-lead ECG Atrial paced rhythm at 60bpm. No significant changes compared to EKG taken on . Assessment & Plan Ms. Trixie Graham is a pleasant 71 year old woman with a history of paroxysmal atrial fibrillation, sick sinus syndrome s/p dual-chamber pacer placement, uncontrolled insulin using diabetes mellitus, multiple ischemic CVA, two hemorrhagic stroke, and hyperlipidemia, that presented to the ED with symptoms of chest pain. Patient admitted for evaluation and treatment of angina and hypertensive emergency. 1. Transient chest pressure, present on admission, active. - Likely secondary to AF with RVR - ED EKG revealed A-paced rhythm with HR at 60. - Last echo in [facility] 08/2015 showed Left ventricular wall thickness is mildly increased. The ejection fraction is estimated to be 60-65%. Consider Limited Echo in am - While the patient's troponin is positive it is only mildly so (0.013). In the setting of her acute kidney injury, it is difficult to interpret. She will require serial troponin testing - EKG prn chest pain. - Continue home dose of ASA 325mg and statin, lipid panel and hgb a1c pending - Nitro, O2 supplement, and Morphine PRN. - Will not start Heparin drip given her history of hemorrhagic CVA in 10/2015. - Consider consult Cardiology in AM - Telemetry monitoring This pain may have related to hypertension or possibly atrial fibrillation. The patient had a stent placed in the LAD in 2012. 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 At this point we will confirm the doses of her losartan and carvedilol and reinstitute these. We will proceed with a stress test with MIBI tomorrow per cardiology's recommendations today. 2. Hypertensive Emergency, acute, present on admission, active. - Markedly elevated BP in the setting of CONNIE and positive troponin. - Highest BP was 242/84. Improved on Nicardipine ggt. - Goal SBP is 180/60. - Will taper and d/c Nicardipine ggt once SBP is stable around 160 - Will continue all antihypertensive home meds when transitioning from Nicardipine drip. Patient is on multiple cardiac medications. - Continue to monitor vital signs This has improved significantly. We will simply reinstitute carvedilol and losartan and confirm doses today. For starters she is on 25 twice a day and 25 a losartan once a day. 3. Acute kidney injury on chronic kidney disease, stage III, present on admission, active. - Cr at admission 2.21 with eGFR 31; baseline 1.7-1.8 according to previous values - Armament Mechanic: Dr. Scott of [facility] - Avoidance of nephrotoxic medications. - Patient appears euvolemic on exam. Encourage oral hydration. At this point we will simply wait for her blood pressures to normalize and follow the creatinine expectantly . 4. Diabetes mellitus, insulin using, likely uncontrolled. - Most recent A1c 08/2015: 8.4 - BG of 250 on admission - Home insulin: NPH 30U bidac with no meal time insulin. - Will reduce the NPH to 15 units BIDAC with low correctional scale in place - Repeat A1c ordered She is fairly adamant that this dosing not be changed significantly. Await her HbA1c. 5. History of Atrial fibrillation, chronic, stable. - s/p pacemaker. EKG showed A-paced rhythm at 60bpm. - Rate controlled with Amiodarone 200mg daily and Carvediol 25mg BID. Continue when nicardipine dc'd likely in am - Recent PFT in 10/2015 showed restrictive lung disease. Might consider amiodarone toxicity. - High CHADS score, but patient is at high risk for bleeding. Warfarin was d/c in 10/2015 after the second hemorrhagic stroke. - Tele monitoring She apparently is scheduled for a watchman procedure to avoid anticoagulation given her history of hemorrhagic stroke. In the interim she appears to be rate controlled. We will confirm her dose of amiodarone and in the meantime continue attentive milligrams a day. 6. Restrictive lung disease, chronic, presume stable. - Recent PFT in 10/2015 showed evidence of a restrictive pattern which can be due to amiodarone toxicity. - Follow up as outpatient 7. Hyperlipidemia, chronic. Managed - Lipid profile for am - Continue statin 8. HTN, essential, chronic, uncontrolled - Management as #2. On Nicardipine ggt. - Will need to resume home antihypertensive medications once patient is off the drip. 9. Pentecostalism influence on treatment - Patient is Hoahaoism - NO BLOOD TRANSFUSIONS 10. Sick sinus syndrome, s/p dual chamber pacer placement. Stable - Pacer placed 08/30/15 at [facility] - Tele in place - Continue to monitor incision; pacer firing, if any 11. Depression, chronic, presume stable. - Continue home dose of Fluoxetine. Bowel regimen as needed Antiemetics as needed APAP as needed for fever/pain CODE STATUS: DNR/DNI per the patient Pain Evaluation: Adequate Pain Control GI Prophylaxis: H2 wendy VTE Prophylaxis: Sub-Q Heparin (Unfractionated) VTE Mechanical Devices: Intermittant Pneumatic CD Resuscitation Status: DNR/DNI:Do Not Resuscitate/Intubate Time spent 35 minutes Clemente Ruff MD May 09, 2016 14:10
[2016-05-09] MEDS ORDERED: [UNRECOGNIZED DRUG - CODE] TP (15:43)
[2016-05-09] MEDS ORDERED: CHOL10008 PO (15:43)
--- NOTE | 2016-05-09 20:01 | NUR ---
CP/Hypertension: P: c/o / CP and 08/28 with activity/ BP above 200. I: Stat EKG was ordered. MD was notified. One dose of sublingual nitro was administered. / Labetalol 10mg IVP ordered for SBP >170. E: No significant changes to EKG. CP resolved. Report given to EUGENIO SIEGEL.
[2016-05-09] MEDS: Labetalol 5 mg/mL 4 mL Inj IVPUSH PRN ×2 (20:07→22:15)
[2016-05-10] VITALS (7 sets, daily range): BP systolic 133–188; BP diastolic 57–82; PULSE 60–62; RESP 16–20; O2SAT 92–98
[2016-05-10] MEDS: Heparin 5,000 Unit/mL Inj SUBQ SCH ×3 (00:12→16:52)
[2016-05-10] MEDS: Sodium Chloride LOK Flush 10 mL Syringe IVFLUSH SCH ×3 (00:30→16:54)
[2016-05-10] MEDS: Insulin Human REGular 300 Unit/3 mL Inj SUBQ SCH ×4 (02:30→20:30)
[2016-05-10 03:59] LABS: Mean Corpuscular Volume 90.5 fL (81-100)
--- NOTE | 2016-05-10 06:09 | NUR ---
Cardiac/Headache Pt BP 190-170 systolically at beginning of shift. 10mg IVP Labetalol given and effective. PT BP remainder of night was 150's to 130's systolically.Pt stated that since her TIA/CVA she has been having trouble with her BP being elevated. Pt c/o headache 08/28 this shift. Administered 975mg Tylenol and effective at decreasing headache. VSS and Tele Paced.
[2016-05-10] MEDS: Insulin Human NPH 100 Unit/mL 3 mL Inj SUBQ SCH ×2 (07:30→16:30)
--- NOTE | 2016-05-10 13:31 | NUR ---
Social Work Note: Initial Assessment Data& Assessment: EMR reviewed. SW met with pt at bedside to discuss discharge planning, SW role explained. Sammy Graham (Christine) is a 71 year old female admitted on 05/08/2016 for hypertensive emergency. Pt has [employer] Medicare insurance coverage. Pt sees Roseann Newman PA-C for primary care. Pt lives in [place] alone and is independent with ADL's at baseline with the assistance of her quad cane and FWW. Pt is legally blind and does not drive, she instead is enrolled in [employer]. Pt explained her daughter will be transporting her home when medically ready though. Pt has been a SBA in her room. Pt has had [facility] and been to [facility] in the past. Pt explained that she has DPOA paperwork completed at home. SW requested a copy for her chart when possible. Pt denies any other needs at this time. SW to continue to follow if any needs arise. Plan: Anticipated discharge home via POV when medically ready. Pt denies any other needs at this time. SW to continue to follow if any needs arise. DIGNA Martini Addendum: 05/10/16 at 1336 by GLADYS SUBRAMANIAN Amended: Links added.
[2016-05-10] MEDS ORDERED: Insulin Human NPH 100 Unit/mL 3 mL Inj SUBQ SCH (14:40)
--- NOTE | 2016-05-10 15:06 | PCM.PNMED ---
Subjective Date of Service May 10, 2016 Subjective Patient did have an episode of chest pain late morning which was relieved with 2 sublingual nitroglycerin. I do review with patient her echo report and need for stress testing as per cardiology. Exam Vital Signs Vital Sign - Last Date Time Temp Pulse Resp B/P Pulse Ox O2 Delivery O2 Flow Rate FiO2 05/10/16 12:35 60 05/10/16 12:28 36.7 18 188/82 96 Room Air Intake and Output 05/09/16 05/09/16 05/10/16 Cumulative From/Thru 15:00 23:00 07:00 05/08/16 20:06 - 05/10/16 05:21 Intake Total 520 ml 1100 ml 500 ml 2120 ml Output Total 250 ml 500 ml Balance 270 ml 1100 ml 500 ml 1620 ml Intake Oral 320 ml 1100 ml 500 ml 1920 ml IV Total 200 ml 200 ml Output Urine Total 250 ml 500 ml # Voids 3 4 8 # Bowel Movements 0 0 0 Exam Constitutional: Elderly woman in no acute distress Head: Normocephalic atraumatic Chest: Clear to auscultation Cor: Regular rate and rhythm S1-S2 without murmur Abdomen: Soft nontender bowel sounds present Extremities: No pedal edema Neuro: Alert and oriented 3, her strength is intact bilaterally Lab and Diagnostics Laboratory Tests 72 Hours Test 05/08/16 20:13 05/08/16 22:25 05/08/16 22:50 05/09/16 03:00 White Blood Count 8.4th/mm3 (3.8-10.1) 7.7th/mm3 (3.8-10.1) Red Blood Count 4.09mil/mm3 (3.90-5.20) 3.73mil/mm3 (3.90-5.20) Hemoglobin 12.0g/dL (12.0-15.6) 10.9g/dL (12.0-15.6) Hematocrit 36.3% (35.0-46.0) 33.4% (35.0-46.0) Mean Corpuscular Volume 88.8fL (81-100) 89.5fL (81-100) Mean Corpuscular Hemoglobin 29.3pg (27.0-35.0) 29.2pg (27.0-35.0) Mean Corpuscular Hemoglobin Concent 33.1% (32.0-37.0) 32.6% (32.0-37.0) Red Cell Distribution Width 13.2% (12.3-15.4) 13.3% (12.3-15.4) Platelet Count 254bil/L (150-400) 236bil/L (150-400) Neutrophils (%) (Auto) 55.7% (40-74) 45.6% (40-74) Lymphocytes (%) (Auto) 31.3% (14-46) 38.9% (14-46) Monocytes (%) (Auto) 8.3% (4-12) 9.8% (4-12) Eosinophils (%) (Auto) 3.8% (0-5) 4.8% (0-5) Basophils (%) (Auto) 0.7% (0-3) 0.6% (0-3) Sodium Level 139mEq/L (134-144) 141mEq/L (134-144) Potassium Level 3.8mEq/L (3.5-5.2) 3.6mEq/L (3.5-5.2) Chloride Level 101mEq/L (97-108) 104mEq/L (97-108) Carbon Dioxide Level 24mmol/L (18-29) 23mmol/L (18-29) Blood Urea Nitrogen 37mg/dL (8-27) 33mg/dL (8-27) Creatinine 2.21mg/dL (0.57-1.00) 2.17mg/dL (0.57-1.00) Estimat Glomerular Filtration Rate 31mL/min (>59) 32mL/min (>59) Glucose Level 250mg/dL (60-99) 238mg/dL (60-99) Hemoglobin A1c 7.1% (4.8-5.6) Calcium Level 9.8mg/dL (8.5-10.1) 9.1mg/dL (8.5-10.1) Magnesium Level 2.2mg/dL (1.6-2.6) 2.1mg/dL (1.6-2.6) Total Bilirubin 0.2mg/dL (0.0-1.2) 0.2mg/dL (0.0-1.2) Aspartate Amino Transf (AST/SGOT) 20U/L (0-50) 17U/L (0-50) Alanine Aminotransferase (ALT/SGPT) 19U/L (0-32) 15U/L (0-32) Alkaline Phosphatase 54U/L (25-165) 46U/L (25-165) Troponin T 0.013ug/L (0.0-0.011) 0.013ug/L (0.0-0.011) 0.016ug/L (0.0-0.011) Total Protein 6.5g/dL (6.4-8.4) 5.2g/dL (6.4-8.4) Albumin 4.0g/dL (3.4-5.0) 3.1g/dL (3.4-5.0) Hold Urine Received (Received) Triglycerides Level 116mg/dL (0-149) Cholesterol Level 190mg/dL (100-199) LDL Cholesterol, Calculated 103.800mg/dL (0-99) VLDL Cholesterol 23.200mg/dL HDL Cholesterol 63mg/dL (>39) Cholesterol/HDL Ratio 3.02 (0.0-4.4) Test 05/10/16 03:20 White Blood Count 6.4th/mm3 (3.8-10.1) Red Blood Count 3.59mil/mm3 (3.90-5.20) Hemoglobin 10.4g/dL (12.0-15.6) Hematocrit 32.5% (35.0-46.0) Mean Corpuscular Volume 90.5fL (81-100) Mean Corpuscular Hemoglobin 29.0pg (27.0-35.0) Mean Corpuscular Hemoglobin Concent 32.0% (32.0-37.0) Red Cell Distribution Width 13.4% (12.3-15.4) Platelet Count 226bil/L (150-400) Sodium Level 144mEq/L (134-144) Potassium Level 3.7mEq/L (3.5-5.2) Chloride Level 107mEq/L (97-108) Carbon Dioxide Level 25mmol/L (18-29) Blood Urea Nitrogen 28mg/dL (8-27) Creatinine 1.94mg/dL (0.57-1.00) Estimat Glomerular Filtration Rate 36mL/min (>59) Glucose Level 89mg/dL (60-99) Calcium Level 9.5mg/dL (8.5-10.1) Total Bilirubin 0.2mg/dL (0.0-1.2) Aspartate Amino Transf (AST/SGOT) 15U/L (0-50) Alanine Aminotransferase (ALT/SGPT) 15U/L (0-32) Alkaline Phosphatase 43U/L (25-165) Total Protein 5.3g/dL (6.4-8.4) Albumin 3.1g/dL (3.4-5.0) Result Diagram: 05/10/16 03205/10/16319 X-Rays, CTs and MRIs PROCEDURE: X-RAY CHEST ONE VIEW, PORTABLE IMPRESSION: No acute cardiopulmonary findings. Dictated by: Elli Main M.D. on 05/08/2016 at 20:44 Approved by: Elli Main M.D. on 05/08/2016 at 20:44 12-lead ECG Atrial paced rhythm at 60bpm. No significant changes compared to EKG taken on . Cardiac Echo Impressions Patient Name: TRIXIE MCCONNELL MR#: [id number] Location: [facility] Ordering Phys: Yodit Bates MD Date of Service: 05/09/[address] [place] [address] Echocardiogram Report Name: TRIXIE MCCONNELL CStudy Date: 05/09/2016 Height: 62 in Hospital Exam Location: [facility] Weight: 20 3 lb Gender: Female BSA: 1.9 m2 : 1945 Age: 71 yrs BP: 164/58 mmHg Reason For Study: Chest pain Ordering Physician: MD Rosemary Bates Performed By: Génesis Hernandez Referring Physician: WILLAM Newman Interpretation Summary The ejection fraction is estimated to be 60-65%. There is a pacemaker lead in the right ventricle. The left atrium is moderately dilated. There is mild tricuspid regurgitation. The right ventricular systolic pressure is estimated at 34 mmHg assuming a right atrial pressure of 3 mm Hg. Compared to the prior echo exam, there has been an increase in PA pressure Procedure: A two-dimensional transthoracic echocardiogram with color flow and Doppler was performed. The study quality was technically good. Comparison is made with the echocardiogram of 09-02-15. The patient has a paced rhythm. Left Ventricle: The left ventricle is normal in size, wall thickness, and systolic function without any focal wall motion abnormalities. The ejection fraction is estimated to be 60-65%. Assessment of diastolic parameters indicates normal left ventricular diastolic function and normal filling pressures. Right Ventricle: The right ventricle is normal in size, thickness and function. There is a pacemaker lead in the right ventricle. Atria: The left atrium is moderately dilated. Right atrial size is normal. There is a catheter/pacemaker lead seen in the right atrium. The interatrial septum is intact with no evidence for an atrial septal defect. Mitral Valve: The mitral valve leaflets appear mildly thickened, but open well. There is trace mitral regurgitation. Aortic Valve: The aortic valve is trileaflet. The aortic valve opens well. No aortic regurgitation is present. Tricuspid Valve: The right ventricular systolic pressure is estimated at 34 mmHg assuming a right atrial pressure of 3 mm Hg. There is mild tricuspid regurgitation. Compared to the prior echo exam, there has been an increase in the severity of pulmonary hypertension. Pulmonic Valve: The pulmonic valve is normal in structure and function. There is trace pulmonic regurgitation. Great Vessels: The aortic root is normal size. The dimensions of the ascending aorta are normal. The IVC is of normal diameter and collapses greater than 50% with a sniff. This suggests a low right atrial pressure of 3 mm Hg. Pericardium/ Pleura There is no pericardial effusion. There is no pleural effusion. MMode/2D Measurements & Calculations LVIDd: 5.4 cm LA dimension: 4.7 cm RA long axis Ao root diam LVIDs: 3.2 cm FS: 40.9 % LA A2 area: 22.0 cm RA area Aortic Jxn: 2.3 cm IVSd: 1.1 cm LA A4 area: 25.2 cm asc Aorta Diam LVPWd: 0.93 cm LA length (vol) : 12.8 cm RA vol Ao Arch Diam (Prox LA vol: 87.4 ml : 30.9 ml Trans): 3.2 cm LA vol index RA : 16.1 mm/ RVDd major IVC diam: 1.9 cm : 6.5 cm LV priest. diameter/BSA LV sys. diameter/BSA RVD1 (basal) RVD2 (mid): 2.5 cm (cm/m^2): 2.8 (cm/m^2): 1.7 Doppler Measurements & Calculations Ao V2 max MV E max marcelino MV E/A: 1.1 TR max marcelino : 198.7 cm/sec : 107.3 cm/sec Med Peak E' Marcelino : 279.7 cm/sec Ao max PG MV A max marcelino TR max PG : 15.8 mmHg : 98.8 cm/sec E/E' med: 14.6 : 31.3 mmHg Ao mean PG MV P1/2t: 74.6 msec Lat Peak E' Marcelino PA V2 max : 142.3 cm/sec LVOT Max Marcelino E/E' lat: 12.1 PA mean PG : 109.9 cm/sec E/e' average: 13.4 sev ratio MV A dur: 0.15 sec PA Accel Time : 0.08 sec MV dec time MV P1/2t max marcelino Ao V2 mean LV V1 max PG : 0.26 sec : 137.4 cm/sec MVA(P1/2t): 3.0 cm2 Ao V2 VTI: 49.0 cm LV V1 VTI : 27.9 cm PA V2 mean : 80.3 cm/sec Electronically signed by: Stefano Macdonald on Reading Physician:05/09/2016 12:46 PM Assessment & Plan Ms. Trixie Mcconnell is a pleasant 71 year old woman with a history of paroxysmal atrial fibrillation, sick sinus syndrome s/p dual-chamber pacer placement, uncontrolled insulin using diabetes mellitus, multiple ischemic CVA, two hemorrhagic stroke, and hyperlipidemia, that presented to the ED with symptoms of chest pain. Patient admitted for evaluation and treatment of angina and hypertensive emergency. 1. Transient chest pressure, present on admission, active. - Likely secondary to AF with RVR - ED EKG revealed A-paced rhythm with HR at 60. - Last echo in [facility] 08/2015 showed Left ventricular wall thickness is mildly increased. The ejection fraction is estimated to be 60-65%. Consider Limited Echo in am - While the patient's troponin is positive it is only mildly so (0.013). In the setting of her acute kidney injury, it is difficult to interpret. She will require serial troponin testing - EKG prn chest pain. - Continue home dose of ASA 325mg and statin, lipid panel and hgb a1c pending - Nitro, O2 supplement, and Morphine PRN. - Will not start Heparin drip given her history of hemorrhagic CVA in 10/2015. - Consider consult Cardiology in AM who saw patient yesterday and recommended stress testing if echo is normal so nuclear pharmacologic stress test is ordered - Telemetry monitoring This pain may have related to hypertension or possibly atrial fibrillation. The patient had a stent placed in the LAD in 2012. 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 At this point we will confirm the doses of her losartan and carvedilol and reinstitute these. We will proceed with a stress test with MIBI tomorrow per cardiology's recommendations today. 2. Hypertensive Emergency, acute, present on admission, active. - Markedly elevated BP in the setting of CONNIE and positive troponin. - Highest BP was 242/84. Improved on Nicardipine ggt. - Goal SBP is 180/60. - Will taper and d/c Nicardipine ggt once SBP is stable around 160 - Will continue all antihypertensive home meds when transitioning from Nicardipine drip. Patient is on multiple cardiac medications. - Continue to monitor vital signs This has improved significantly. We will simply reinstitute her usual home regimen including isosorbide which was held while she was on IV nicardipine drip 3. Acute kidney injury on chronic kidney disease, stage III, present on admission, active. - Cr at admission 2.21 with eGFR 31; baseline 1.7-1.8 according to previous values - Nut Dehydrator Operator: Dr. Scott of [facility] - Avoidance of nephrotoxic medications. - Patient appears euvolemic on exam. Encourage oral hydration. At this point we will simply wait for her blood pressures to normalize and follow the creatinine expectantly . 4. Diabetes mellitus, insulin using, likely uncontrolled. - Most recent A1c 08/2015: 8.4 - BG of 250 on admission - Home insulin: NPH 30U bidac with no meal time insulin. - Will reduce the NPH to 15 units BIDAC with low correctional scale in place - Repeat A1c ordered She is fairly adamant that this dosing not be changed significantly. Await her HbA1c. 5. History of Atrial fibrillation, chronic, stable. - s/p pacemaker. EKG showed A-paced rhythm at 60bpm. - Rate controlled with Amiodarone 200mg daily and Carvediol 25mg BID. Continue when nicardipine dc'd likely in am - Recent PFT in 10/2015 showed restrictive lung disease. Might consider amiodarone toxicity. - High CHADS score, but patient is at high risk for bleeding. Warfarin was d/c in 10/2015 after the second hemorrhagic stroke. - Tele monitoring She apparently is scheduled for a watchman procedure to avoid anticoagulation given her history of hemorrhagic stroke. In the interim she appears to be rate controlled. We will confirm her dose of amiodarone and in the meantime continue attentive milligrams a day. 6. Restrictive lung disease, chronic, presume stable. - Recent PFT in 10/2015 showed evidence of a restrictive pattern which can be due to amiodarone toxicity. - Follow up as outpatient 7. Hyperlipidemia, chronic. Managed - Lipid profile for am - Continue statin 8. HTN, essential, chronic, uncontrolled - Management as #2. On Nicardipine ggt. - Will need to resume home antihypertensive medications once patient is off the drip. 9. Spiritism influence on treatment - Patient is Yazdanism - NO BLOOD TRANSFUSIONS 10. Sick sinus syndrome, s/p dual chamber pacer placement. Stable - Pacer placed 08/30/15 at [facility] - Tele in place - Continue to monitor incision; pacer firing, if any 11. Depression, chronic, presume stable. - Continue home dose of Fluoxetine. Bowel regimen as needed Antiemetics as needed APAP as needed for fever/pain CODE STATUS: DNR/DNI per the patient GI Prophylaxis: H2 wendy VTE Prophylaxis: Sub-Q Heparin (Unfractionated) VTE Mechanical Devices: Intermittant Pneumatic CD Resuscitation Status: DNR/DNI:Do Not Resuscitate/Intubate Time spent 30 minutes Emily Yadav MD May 10, 2016 15:06 Emily Yadav MD May 10, 2016 15:06
--- NOTE | 2016-05-10 18:03 | NUR ---
Stress test Pt unable to do stress test until tomorrow as she had tea today, Pt needs to be caffeine free and nitro free. Pt needs her isosorbide held as well until after cardiac stress test. Pt will be NPO after midnight with only sips of water, she has been educated on no caffeine.
[2016-05-11] MEDS: Heparin 5,000 Unit/mL Inj SUBQ SCH ×2 (00:09→10:35)
[2016-05-11] MEDS: Sodium Chloride LOK Flush 10 mL Syringe IVFLUSH SCH ×2 (00:09→10:02)
[2016-05-11 00:10] VITALS: BP 166/60; PULSE 60; RESP 20; O2SAT 93
[2016-05-11 03:32] VITALS: PULSE 60
[2016-05-11 04:00] VITALS: BP 153/63; PULSE 58; RESP 20; O2SAT 96
[2016-05-11] MEDS: Insulin Human REGular 300 Unit/3 mL Inj SUBQ SCH ×3 (04:10→12:13)
--- NOTE | 2016-05-11 06:28 | NUR ---
Cardiac Pt remains CP free this shift. Pt NPO since midnight for stress test and pt has not had any caffeine or nitro this shift. No c/o of headache this shift as well. BP systolically 150's to 160 all shift. Pt also declining regular insulin stating that she feels as though it works to fast for her. VSS and Tele paced 60's.
--- NOTE | 2016-05-11 07:41 | NUR ---
MIBI Patient npo since midnight. Down to [facility] for stress test.
[2016-05-11 08:00] VITALS: PULSE 60
[2016-05-11] MEDS: Labetalol 5 mg/mL 4 mL Inj IVPUSH PRN (09:59)
[2016-05-11 11:51] VITALS: BP 123/55; PULSE 60; RESP 18; O2SAT 97
[2016-05-11] MEDS: Insulin Human NPH 100 Unit/mL 3 mL Inj SUBQ SCH (12:58)
[2016-05-11 13:33] VITALS: BP 96/45; PULSE 59
--- NOTE | 2016-05-11 14:54 | DRSVH ---
PROCEDURE: 1 DAY PHARMACOLOGICAL STRESS TEST Rest and pharmacological stress myocardial perfusion SPECT with gated imaging and ejection fraction RADIOPHARMACEUTICAL: 15.2 mCi Tc-99m tetrafosmin IV at rest and 45.2 mCi Tc-99m tetrafosmin IV at pea k effect of pharmacological stress. A [id number] was performed. INDICATIONS: CHEST PAIN. TECHNIQUE: Radiopharmaceutical was injected at peak stress test, and also at rest. SPECT images wer e obtained. SPECT myocardial perfusion images were displayed in short axis, horizontal long axis, an d vertical long axis views. Gated images were reviewed using [employer] software. COMPARISON: None. CARDIAC STRESS: A pharmacologic stress test was performed under the supervision of an attending staff, using an infus ion of Regadenoson. Hemodynamic data: There is normal blood pressure and heart rate response to pharmacologic stress. Symptoms: The patient denied anginal chest pain. Aminophylline: 100 mg EKG: No diagnostic changes of ischemia; no ectopy. FINDINGS: Raw data: There is good myocardial uptake of radiotracer. No significant motion artifacts. Left ventricle function: Gated images demonstrate normal left ventricular wall thickening. No segme ntal wall motion abnormalities. Left ventricle resting end diastolic volume is 80 mL. Left ventricl e stress ejection fraction is 77%; normal range is above 45%. Myocardial perfusion: There is an inferior perfusion defect that is noticeable on the inferior wall. The defect is worse on supine rest images and slightly worsens at the apex but improves along the i nferior wall. On prone stress images, the defect essentially resolves complete. IMPRESSION: 1. Most likely normal myocardial perfusion study. 2. Normal LVEF and LV wall motion. 3. Inferior perfusion defect most likely attenuation artifact. Resolves with prone imaging. Dictated by: Remy Aguilar Jr., M.D. on 05/11/2016 at 14:47 Approved by: Remy Aguilar Jr., M.D. on 05/11/2016 at 14:53
--- NOTE | 2016-05-11 16:05 | NUR ---
Discharge note Patient a/o x 3, denies chest pain, nausea or sob. Patient c/o weakness and visual changes post stress test. SBP 90's MD aware. Patient stated she felt better after resting in bed for short period of time. Up indep in room, steady gait. Tele paced. IV SL and tele removed intact. Patient given discharge instructions, medication reconciliation and info on diagnosis. No new prescriptions. Patient encouraged to monitor blood pressure prior to taking meds and keep record for MD appt. All questions answered. Patient taken to the car via wheelchair with all belongings and discharged home with friend.
--- NOTE | 2016-05-11 16:17 | PCM.DIMED ---
Discharge Instructions Date of Service May 11, 2016 Dates of Hospitalization May 08, 2016 at 22:15 Discharge Diagnosis Discharge Diagnosis Chest pain Diet Heart Healthy Activity Other (as tolerated) Call your provider Fever or Chills, Shortness of breath, Bleeding, Chest pain, Vomitting, Excessive diarrhea Patient Instructions Follow-up Provider: Roseann Newman PA-C Follow-up with PCP in: 1 week Emily Yadav MD May 11, 2016 16:17
--- NOTE | 2016-05-11 16:26 | PCM.DC.MED ---
Discharge Summary Date of Service May 11, 2016 Dates of Hospitalization Date of Hospital Admission May 08, 2016 at 22:15 Date of Discharge: May 11, 2016 Providers: Admitting Physician: Lavonne Andujar DO Primary Care Physician: Roseann Newman PA-C Attending Physician: Lavonne Andujar DO Diagnosis at Time of Discharge Diagnosis at Time of Discharge Chest pain Consultations Cardiology Procedures XRay, CTs & MRIs PROCEDURE: X-RAY CHEST ONE VIEW, PORTABLE IMPRESSION: No acute cardiopulmonary findings. Dictated by: Elli Main M.D. on 05/08/2016 at 20:44 Approved by: Elli Main M.D. on 05/08/2016 at 20:44 ECG 12 Lead Atrial paced rhythm at 60bpm. No significant changes compared to EKG taken on . Cardiac Echo Impression Patient Name: TRIXIE MCCONNELL MR#: [id number] Location: [facility] Ordering Phys: Yodit Bates MD Date of Service: 05/09/[address] [place] [id number] Echocardiogram Report Name: TRIXIE MCCONNELL CStudy Date: 05/09/2016 Height: 62 in Hospital Exam Location: [facility] Weight: 20 3 lb Gender: Female BSA: 1.9 m2 : 1945 Age: 71 yrs BP: 164/58 mmHg Reason For Study: Chest pain Ordering Physician: MD Rosemary Bates Performed By: Génesis Hernandez Referring Physician: WILLAM Newman Interpretation Summary The ejection fraction is estimated to be 60-65%. There is a pacemaker lead in the right ventricle. The left atrium is moderately dilated. There is mild tricuspid regurgitation. The right ventricular systolic pressure is estimated at 34 mmHg assuming a right atrial pressure of 3 mm Hg. Compared to the prior echo exam, there has been an increase in PA pressure Procedure: A two-dimensional transthoracic echocardiogram with color flow and Doppler was performed. The study quality was technically good. Comparison is made with the echocardiogram of 09-02-15. The patient has a paced rhythm. Left Ventricle: The left ventricle is normal in size, wall thickness, and systolic function without any focal wall motion abnormalities. The ejection fraction is estimated to be 60-65%. Assessment of diastolic parameters indicates normal left ventricular diastolic function and normal filling pressures. Right Ventricle: The right ventricle is normal in size, thickness and function. There is a pacemaker lead in the right ventricle. Atria: The left atrium is moderately dilated. Right atrial size is normal. There is a catheter/pacemaker lead seen in the right atrium. The interatrial septum is intact with no evidence for an atrial septal defect. Mitral Valve: The mitral valve leaflets appear mildly thickened, but open well. There is trace mitral regurgitation. Aortic Valve: The aortic valve is trileaflet. The aortic valve opens well. No aortic regurgitation is present. Tricuspid Valve: The right ventricular systolic pressure is estimated at 34 mmHg assuming a right atrial pressure of 3 mm Hg. There is mild tricuspid regurgitation. Compared to the prior echo exam, there has been an increase in the severity of pulmonary hypertension. Pulmonic Valve: The pulmonic valve is normal in structure and function. There is trace pulmonic regurgitation. Great Vessels: The aortic root is normal size. The dimensions of the ascending aorta are normal. The IVC is of normal diameter and collapses greater than 50% with a sniff. This suggests a low right atrial pressure of 3 mm Hg. Pericardium/ Pleura There is no pericardial effusion. There is no pleural effusion. MMode/2D Measurements & Calculations LVIDd: 5.4 cm LA dimension: 4.7 cm RA long axis Ao root diam LVIDs: 3.2 cm FS: 40.9 % LA A2 area: 22.0 cm RA area Aortic Jxn: 2.3 cm IVSd: 1.1 cm LA A4 area: 25.2 cm asc Aorta Diam LVPWd: 0.93 cm LA length (vol) : 12.8 cm RA vol Ao Arch Diam (Prox LA vol: 87.4 ml : 30.9 ml Trans): 3.2 cm LA vol index RA : 16.1 mm/ RVDd major IVC diam: 1.9 cm : 6.5 cm LV priest. diameter/BSA LV sys. diameter/BSA RVD1 (basal) RVD2 (mid): 2.5 cm (cm/m^2): 2.8 (cm/m^2): 1.7 Doppler Measurements & Calculations Ao V2 max MV E max marcelino MV E/A: 1.1 TR max marcelino : 198.7 cm/sec : 107.3 cm/sec Med Peak E' Marcelino : 279.7 cm/sec Ao max PG MV A max marcelino TR max PG : 15.8 mmHg : 98.8 cm/sec E/E' med: 14.6 : 31.3 mmHg Ao mean PG MV P1/2t: 74.6 msec Lat Peak E' Marcelino PA V2 max : 142.3 cm/sec LVOT Max Marcelino E/E' lat: 12.1 PA mean PG : 109.9 cm/sec E/e' average: 13.4 sev ratio MV A dur: 0.15 sec PA Accel Time : 0.08 sec MV dec time MV P1/2t max marcelino Ao V2 mean LV V1 max PG : 0.26 sec : 137.4 cm/sec MVA(P1/2t): 3.0 cm2 Ao V2 VTI: 49.0 cm LV V1 VTI : 27.9 cm PA V2 mean : 80.3 cm/sec Electronically signed by: Stefano Macdonald on Reading Physician:05/09/2016 12:46 PM Other Diagnostics The patient had a pharmacologic nuclear stress test and verbal report per Dr. Aguilar was negative for abnormalities. Brief History Ms. Trixie Mcconnell is a pleasant 71 year old woman with a history of CAD s/p stenting x2, paroxysmal atrial fibrillation, sick sinus syndrome s/p dual- chamber pacer placement, insulin using diabetes mellitus, multiple ischemic CVA , two hemorrhagic stroke, and hyperlipidemia, who presented to the ED via EMS for substernal chest pain onset this morning. Patient reports to have intermittent angina that improved after the pacemaker placement. She has had occasional angina episodes that resolve spontaneously. Today was different as the chest pain persisted until she got to the ED. Patient has chest pain both at rest and with activities, but seems to worsen with exertion. She states, "even putting on clothes feels like running a marathon." She took nitroglycerin x3 throughout the day with some relief. When the pain returned again this evening, she decided to call EMS. She describes the pain as a "pressure" and "heaviness." The pain is located to her substernal region with no radiation. The episodes of pain seem to be brought on with exertion. Her pain is similar to when she had stents placed. EMS administered an additional dose of nitroglycerin en route. The pain is resolved now. Patient states that she had 2 stents, one was placed 7 years ago, and the other was placed 2 years ago. Never has CABG. Associated symptoms include exertional dyspnea. Patient denies fever , diaphoresis, cough, runny nose, headache, or orthopnea. Patient had 2 hemorrhagic stroke, with the most recent one in 10/2015 and her warfarin has been held since. She does not have any neurological deficit and can ambulate independently as baseline. She reports that the Afib has been well- controlled with the pacemaker. Rate controlled with Carvedilol and Amiodarone. In the ED, T36.6, P158, R20, BP242/84, 94% room air; LABS: CBC unremarkable, CMP : BUN 37 at baseline, creatinine of 2.21 which is slightly elevated from baseline of 1.7-1.8, glucose 250, no significant electrolyte abnormality, troponin 0.013 increased from prior negative troponin on 11/09/2015. EKG revealed Atrial paced rhythm at 60bpm with no significant changes compared to the last EKG on 11/15/2015. Nicardipime drip initiated. Patient is admitted to the CCU for angina and hypertensive emergency. Hospital Course Ms. Trixie Mcconnell is a pleasant 71 year old woman with a history of paroxysmal atrial fibrillation, sick sinus syndrome s/p dual-chamber pacer placement, uncontrolled insulin using diabetes mellitus, multiple ischemic CVA, two hemorrhagic stroke, and hyperlipidemia, that presented to the ED with symptoms of chest pain. Patient admitted for evaluation and treatment of angina and hypertensive emergency. 1. Transient chest pressure, present on admission, active. - Likely secondary to AF with RVR - ED EKG revealed A-paced rhythm with HR at 60. - Last echo in [facility] 08/2015 showed Left ventricular wall thickness is mildly increased. The ejection fraction is estimated to be 60-65%. Consider Limited Echo in am - While the patient's troponin is positive it is only mildly so (0.013). In the setting of her acute kidney injury, it is difficult to interpret. She will require serial troponin testing - EKG prn chest pain. - Continue home dose of ASA 325mg and statin, lipid panel and hgb a1c pending - Nitro, O2 supplement, and Morphine PRN. - Will not start Heparin drip given her history of hemorrhagic CVA in 10/2015. - Consider consult Cardiology in AM who saw patient yesterday and recommended stress testing if echo is normal so nuclear pharmacologic stress test is ordered - Telemetry monitoring This pain may have related to hypertension or possibly atrial fibrillation. The patient had a stent placed in the LAD in 2012. 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 At this point we will confirm the doses of her losartan and carvedilol and reinstitute these. We will proceed with a stress test with MIBI tomorrow per cardiology's recommendations today. 2. Hypertensive Emergency, acute, present on admission, active. - Markedly elevated BP in the setting of CONNIE and positive troponin. - Highest BP was 242/84. Improved on Nicardipine ggt. - Goal SBP is 180/60. - Will taper and d/c Nicardipine ggt once SBP is stable around 160 - Will continue all antihypertensive home meds when transitioning from Nicardipine drip. Patient is on multiple cardiac medications. - Continue to monitor vital signs This has improved significantly. We will simply reinstitute her usual home regimen including isosorbide which was held while she was on IV nicardipine drip 3. Acute kidney injury on chronic kidney disease, stage III, present on admission, active. - Cr at admission 2.21 with eGFR 31; baseline 1.7-1.8 according to previous values - Payroll Manager: Dr. Scott of [facility] - Avoidance of nephrotoxic medications. - Patient appears euvolemic on exam. Encourage oral hydration. At this point we will simply wait for her blood pressures to normalize and follow the creatinine expectantly . 4. Diabetes mellitus, insulin using, likely uncontrolled. - Most recent A1c 08/2015: 8.4 - BG of 250 on admission - Home insulin: NPH 30U bidac with no meal time insulin. - Will reduce the NPH to 15 units BIDAC with low correctional scale in place - Repeat A1c ordered She is fairly adamant that this dosing not be changed significantly. Await her HbA1c. 5. History of Atrial fibrillation, chronic, stable. - s/p pacemaker. EKG showed A-paced rhythm at 60bpm. - Rate controlled with Amiodarone 200mg daily and Carvediol 25mg BID. Continue when nicardipine dc'd likely in am - Recent PFT in 10/2015 showed restrictive lung disease. Might consider amiodarone toxicity. - High CHADS score, but patient is at high risk for bleeding. Warfarin was d/c in 10/2015 after the second hemorrhagic stroke. - Tele monitoring She apparently is scheduled for a watchman procedure to avoid anticoagulation given her history of hemorrhagic stroke. In the interim she appears to be rate controlled. We will confirm her dose of amiodarone and in the meantime continue attentive milligrams a day. 6. Restrictive lung disease, chronic, presume stable. - Recent PFT in 10/2015 showed evidence of a restrictive pattern which can be due to amiodarone toxicity. - Follow up as outpatient 7. Hyperlipidemia, chronic. Managed - Lipid profile for am - Continue statin 8. HTN, essential, chronic, uncontrolled - Management as #2. On Nicardipine ggt. - Will need to resume home antihypertensive medications once patient is off the drip. 9. Church influence on treatment - Patient is [employer]al - NO BLOOD TRANSFUSIONS 10. Sick sinus syndrome, s/p dual chamber pacer placement. Stable - Pacer placed 08/30/15 at [facility] - Tele in place - Continue to monitor incision; pacer firing, if any 11. Depression, chronic, presume stable. - Continue home dose of Fluoxetine. Bowel regimen as needed Antiemetics as needed APAP as needed for fever/pain CODE STATUS: DNR/DNI per the patient Exam Vital Signs (Last) Date Time Temp Pulse Resp B/P Pulse Ox O2 Delivery O2 Flow Rate FiO2 05/11/16 13:33 59 96/45 05/11/16 11:51 36.9 18 97 Room Air Exam Constitutional: Elderly woman in no acute distress Head: Normocephalic atraumatic Chest: Clear to auscultation Cor: Regular rate and rhythm S1-S2 without murmur Abdomen: Soft nontender bowel sounds present Extremities: No pedal edema Neuro: Alert and oriented 3, motor strength intact bilaterally Test 05/08/16 20:13 05/08/16 22:50 05/09/16 03:00 05/10/16 03:20 Hemoglobin A1c 7.1% (4.8-5.6) Hold Urine Received (Received) Neutrophils (%) (Auto) 45.6% (40-74) Lymphocytes (%) (Auto) 38.9% (14-46) Monocytes (%) (Auto) 9.8% (4-12) Eosinophils (%) (Auto) 4.8% (0-5) Basophils (%) (Auto) 0.6% (0-3) Magnesium Level 2.1mg/dL (1.6-2.6) Troponin T 0.016ug/L (0.0-0.011) Triglycerides Level 116mg/dL (0-149) Cholesterol Level 190mg/dL (100-199) LDL Cholesterol, Calculated 103.800mg/dL (0-99) VLDL Cholesterol 23.200mg/dL HDL Cholesterol 63mg/dL (>39) Cholesterol/HDL Ratio 3.02 (0.0-4.4) White Blood Count 6.4th/mm3 (3.8-10.1) Red Blood Count 3.59mil/mm3 (3.90-5.20) Hemoglobin 10.4g/dL (12.0-15.6) Hematocrit 32.5% (35.0-46.0) Mean Corpuscular Volume 90.5fL (81-100) Mean Corpuscular Hemoglobin 29.0pg (27.0-35.0) Mean Corpuscular Hemoglobin Concent 32.0% (32.0-37.0) Red Cell Distribution Width 13.4% (12.3-15.4) Platelet Count 226bil/L (150-400) Sodium Level 144mEq/L (134-144) Potassium Level 3.7mEq/L (3.5-5.2) Chloride Level 107mEq/L (97-108) Carbon Dioxide Level 25mmol/L (18-29) Blood Urea Nitrogen 28mg/dL (8-27) Creatinine 1.94mg/dL (0.57-1.00) Estimat Glomerular Filtration Rate 36mL/min (>59) Glucose Level 89mg/dL (60-99) Calcium Level 9.5mg/dL (8.5-10.1) Total Bilirubin 0.2mg/dL (0.0-1.2) Aspartate Amino Transf (AST/SGOT) 15U/L (0-50) Alanine Aminotransferase (ALT/SGPT) 15U/L (0-32) Alkaline Phosphatase 43U/L (25-165) Total Protein 5.3g/dL (6.4-8.4) Albumin 3.1g/dL (3.4-5.0) Discharge Medications Discharge Medications Amiodarone (Amiodarone) 200 Mg Tablet 200 MG PO DAILY (Reported) Aspirin (Aspirin) 325 Mg Tablet 325 MG PO QAM (Reported) Bumetanide (Bumetanide) 1 Mg Tablet 1 MG PO DAILY (Reported) Carvedilol (Carvedilol) 25 Mg Tablet 25 MG PO BID (Reported) Cholecalciferol (Vitamin D3) (Vitamin D3) 1,000 Unit Tab.chew 1,000 UNIT PO DAILY (Reported) Famotidine (Famotidine) 20 Mg Tablet 20 MG PO BID (Reported) Fluoxetine (Fluoxetine) 10 Mg Capsule 10 MG PO QAM (Reported) Hydralazine (Hydralazine) 50 Mg Tablet 50 MG PO BID (Reported) Isosorbide DN (Isosorbide DN) 20 Mg Tablet 40 MG PO BID (Reported) Minoxidil (Hair Regrowth) 240 Ml Solution 1 ML TP BID (Reported) NPH, Human Insulin Isophane (HUMulin-N U100 Insulin Vial) 100 Unit/1 Ml Vial 30 UNIT SUBQ BID (Reported) Pravastatin (Pravastatin) 10 Mg Tablet 10 MG PO HS Prescribed by: YAN RILEY DO As needed Melatonin (Melatonin) 3 Mg Tablet.er 3 MG PO HS PRN PRN For Insomnia (Reported) Nitroglycerin SL (Nitrostat) 0.4 Mg Tablet 0.4 MG SL Q5MIN PRN PRN For Chest Pain Prescribed by: YAN RILEY DO Followup Plan Disposition: Home Follow-up plan Follow-up with her primary care provider in one week sooner if problems Discharge Diet: Heart Healthy Discharge Activity: Other (as tolerated) Follow-up Provider: Roseann Newman PA-C Follow-up with PCP in: 1 week Time spent 60 minutes Emily Yadav MD May 11, 2016 16:26
== END 2016-05-11 16:11 | disposition home or self-care (01) | DRG 309 ==
LOC: SED 20:04 → PCC 22:15 → CCU 22:47 → PCC 05-09 11:27
PROVIDERS: ADMIT Internal Medicine; ATTEND Internal Medicine
DX: I48.0 Paroxysmal atrial fibrillation (principal); N17.9 Acute kidney failure, unspecified; I16.1 Hypertensive emergency; R07.9 Chest pain, unspecified; Z95.1 Presence of aortocoronary bypass graft; Z95.5 Presence of coronary angioplasty implant and graft; Z95.0 Presence of cardiac pacemaker; Z86.73 Personal history of transient ischemic attack (TIA), and cerebral infarction without residual deficits; Z79.82 Long term (current) use of aspirin; Z79.4 Long term (current) use of insulin; Z79.01 Long term (current) use of anticoagulants; H54.8 Legal blindness, as defined in USA; N18.3 Chronic kidney disease, stage 3 (moderate); I12.9 Hypertensive chronic kidney disease with stage 1 through stage 4 chronic kidney disease, or unspecified chronic kidney disease; E11.65 Type 2 diabetes mellitus with hyperglycemia; F32.9 Major depressive disorder, single episode, unspecified; Z66 Do not resuscitate